=== PATIENT | male | born 1985 | race Caucasian/White ===

== ENCOUNTER 2021-08-24 07:48 | Day surgery (SDC) | payer OTHER ==
[2021-08-18 16:11] LABS: PRE OP PROTIME 10.7 SECONDS (9.0-12.0)
[2021-08-18 16:15] LABS: ALBUMIN 4.2 G/DL (3.4-5.0); ALBUMIN/GLOBULIN RATIO 1.3 (1.1-1.5); ALKALINE PHOSPHATASE 56 IU/L (46-116); BASOPHILS % (AUTO) 0.7 % (0-1); BLOOD UREA NITROGEN 19 MG/DL (7-18); BUN/CREATININE RATIO 20.7 (5.4-32.0); CALCIUM 8.7 MG/DL (8.5-10.1); CHLORIDE 105 MMOL/L (99-107); CREATININE 0.92 MG/DL (0.60-1.10); EOSINOPHILS # (AUTO) 0.2 X10'3 (0-0.9); EOSINOPHILS % (AUTO) 4.4 % (0-6); LYMPHOCYTES # (AUTO) 1.4 X10'3 (1.1-4.8); LYMPHOCYTES % (AUTO) 32.8 % (21-51); MEAN CORPUSCULAR HEMOGLOBIN 30.3 PG (27.0-31.0); MEAN CORPUSCULAR HGB CONC 34.7 g/dL (33.0-36.5); MEAN CORPUSCULAR VOLUME 87.4 FL (78-98); MONOCYTES # (AUTO) 0.3 X10'3 (0-0.9); MONOCYTES % (AUTO) 6.3 % (2-12); NEUTROPHILS # (AUTO) 2.4 X10'3 (1.8-7.7); NEUTROPHILS % (AUTO) 55.8 % (42-75); PRE OP ALT 39 U/L (30-65); PRE OP ANION GAP 10 (8-16); PRE OP AST 19 U/L (10-37); PRE OP BILIRUB, TOTAL 0.6 MG/DL (0.0-1.0); PRE OP GLUCOSE 89 MG/DL (70-104); PRE OP HEMATOCRIT 43.5 % (42.0-52.0); PRE OP HEMOGLOBIN 15.1 g/dL (14.0-17.9); PRE OP PLATELET COUNT 226 X10'3 (140-440); PRE OP SODIUM 143 MMOL/L (135-145); RED BLOOD COUNT 4.97 X10'6 (4.70-6.10); RED CELL DISTRIBUTION WIDTH 12.9 % (11.5-14.5); TOTAL CARBON DIOXIDE 28.1 MMOL/L (24-32); TOTAL PROTEIN 7.5 G/DL (6.4-8.2); eGFR > 90 ML/MIN
[~2021-08-24] VITALS: Ht 188 cm; Wt 90.2 kg
[2021-08-24] VITALS (9 sets, daily range): BP systolic 130–144; BP diastolic 82–98
[~2021-08-24 07:48] MED LIST: LIDOCAINE 1%/EPI 1:100,000 inj. 10 ML multi-dose vial ONE; LIDOcaine 1% W/epiNEPHrine 1:200,000 10ml vial ONE; cefTAZidime 1gm inj ONE; cocaine 4% topical solution 4ml bottle ONE; diazepam 5mg tablet PO PRN; famotidine 20mg tablet PO ONE; methylPREDNISolone acetate 80mg/ml inj**IM only ONE; mupirocin 2% ointment 22GM ONE; oxymetazoline 15 ML nasal spray NS ONE; oxymetazoline 15 ML nasal spray NS PRN; ringers solution, lacted 1,000 ML IV SCH
[2021-08-24] MEDS ORDERED: FINA1TAB17 PO (08:32)
[2021-08-24] MEDS ORDERED: DIAZ5TAB PO (08:34)
[2021-08-24] MEDS ORDERED: sevoflurane 250ml liquid IH ONE (09:39)
[2021-08-24] MEDS ORDERED: labetalol 20mg/4ml (5mg/ml) syringe IV PRN (09:40)
[2021-08-24] MEDS ORDERED: ondansetron/PF 4mg/2ml inj IV PRN (09:40)
[2021-08-24] MEDS ORDERED: morphine 4 MG/ML inj SYRINge IV PRN (09:40)
[2021-08-24] MEDS ORDERED: meperidine/PF 25mg/ml syringe IV PRN ×2 (09:40)
[2021-08-24] MEDS ORDERED: ringers solution, lacted 1,000 ML IV SCH (09:40)
[2021-08-24] MEDS ORDERED: hydrALAZINE 20mg/ml inj. IV PRN (09:40)
[2021-08-24] MEDS ORDERED: morphine 2 MG/ML inj. syringe IV PRN (09:40)
[2021-08-24] MEDS ORDERED: fentaNYL/PF 50MCG/1 ML 2ML syringe ONE (09:44)
[2021-08-24] MEDS ORDERED: midazolam 1 mg/ML 2ml injection ONE (09:44)
[2021-08-24] MEDS ORDERED: LIDOcaine 2% (20mg/ml) 5ml vial ONE (09:59)
[2021-08-24] MEDS ORDERED: propofol inj 20 ML IV ONE (09:59)
[2021-08-24] MEDS ORDERED: dexamethasone sod phosphate 4mg/ml inj. ONE (09:59)
[2021-08-24] MEDS ORDERED: ondansetron/PF 4mg/2ml inj ONE (09:59)
[2021-08-24] MEDS ORDERED: labetalol 20mg/4ml (5mg/ml) syringe IV ONE (10:42)
--- NOTE | 2021-08-24 11:02 | NUR ---
Received from OR via , accompanied by Anesthesiologist DR MCKEON and report given by Anesthesiolgist. AWAKENS TO VOICE. VITALS STABLE. DRESSINGS DI. JOSE PAIN.
[2021-08-24] MEDS ORDERED: salt irrigation nasal spray 45 ML SPRAY NS PRN (11:35)
--- NOTE | 2021-08-24 12:32 | NUR ---
AWAKE AND ORIENTED. VITALS STABLE. DRESSING DI. JOSE PAIN. HOME WITH A FRIEND AT THIS TIME.
== END 2021-08-24 12:32 | disposition home or self-care (01) ==
LOC: PAS 07:48
PROVIDERS: ATTEND Otolaryngology
DX: J34.2 Deviated nasal septum (principal); J34.3 Hypertrophy of nasal turbinates; Z79.01 Long term (current) use of anticoagulants; Z79.899 Other long term (current) drug therapy; Z98.890 Other specified postprocedural states
CPT/HCPCS: 30140; 30520; 36415; 80053; 82948; 85025; 85576; 85610; 85730; 87635; A6402; C9250; C9803; J0713; J1040; J1100; J2001; J2175; J2250; J2405; J2704; J3010; J7040; U0003; U0005; Z7506; Z7508; Z7512; A4618; A7000; J3490; J7120